=== PATIENT | male | born 1970 | race Caucasian/White ===

== ENCOUNTER 2018-08-18 04:18 | Emergency (ER) | payer SELFPAY ==
[2018-08-18] MEDS ORDERED: SODIUM CHLORIDE 0.9% 1000ML 1,000 ML ONE (04:32)
[2018-08-18] MEDS ORDERED: SODIUM CHLORIDE 0.9% 1000ML 1,000 ML IVS ONE ×2 (04:34→05:43)
--- NOTE | 2018-08-18 04:35 | ED.PDOC ---
History of Present Illness - General Chief Complaint: Abdominal Pain Stated Complaint: RUQ pain since [id number] last night Time Seen by Provider: 08/18/18 04:31 Source: patient, RN notes reviewed, Vital Signs reviewed Additional Information: 48 YEAR OLD PRESENTS WITH ABDOMINAL PAIN IT STARTED AROUND 9 PM PROGRESSIVE WITH NAUSEA VOMITING DISTENED ABDOMEN AND CONSTANT SEVERE PAIN HE HAD BOWEL MOVEMENT BUT NO BLOOD OR MUCOUS HE HAS BEEN ON KETOGENIC DIET FOR SEVERAL WEEKS THERE IS HISTOR OF COLON POLYPS IN THE FAMILY HE HAS NO RECENT CHANGE IN BOWEL HABITS NO ANOREXIA NO WEIGHT LOSS HE IS A HEALTHY MALE OTHERWISE PHYSICAL EXAM AWAKE ALERT IN OBVIOUS DISTRESS LUNGS CLEAR HEART SOUNDS NORMAL ABD DISTENDED THERE IS DIFFUSE TENDERNESS WITH SOME GUARDING BOWEL SOUNDS TYMPANIC RECTAL DEFERED CT ABD PELVIS SUGGESTIVE OF SMALL BOWEL OBSTRUCTION - History of Present Illness Timing/Duration: 4-6 hours Severity: moderate Worsening Factors: nothing Associated Symptoms: denies symptoms Allergies/Adverse Reactions: Allergies NO KNOWN ALLERGY Allergy (Verified 08/18/18 04:30) Home Medications: Ambulatory Orders NK 08/18/18 Review of Systems - Review of Systems Constitutional: States: no symptoms reported EENTM: States: no symptoms reported Respiratory: States: no symptoms reported Cardiology: States: no symptoms reported Gastrointestinal/Abdominal: States: see HPI Genitourinary: States: no symptoms reported Musculoskeletal: States: no symptoms reported Skin: States: no symptoms reported Neurological: States: no symptoms reported Endocrine: States: no symptoms reported Past Medical History (General) - Patient Medical History Hx Seizures: No Hx Stroke: No Hx Dementia: No Hx Asthma: No Hx of COPD: No Hx Cardiac Disorders: No Hx Congestive Heart Failure: No Hx Pacemaker: No Hx Hypertension: No Hx Thyroid Disease: No Hx Diabetes: No Hx Gastroesophageal Reflux: No Hx Renal Disease: No Hx Cancer: No Hx of HIV: No Hx Hepatitis C: No Hx MRSA: No Surgical History: no surgical history - Vaccination History Hx Tetanus, Diphtheria Vaccination: No Hx Influenza Vaccination: No - Social History Hx Tobacco Use: No Hx Alcohol Use: Yes - social Family Medical History - Family History Father Hx Family Diabetes: Yes Physical Exam - Physical Exam General Appearance: Alert, Comfortable Eye Exam: bilateral normal, bilateral abnormal EOM Ears, Nose, Throat: hearing grossly normal, normal ENT inspection, normal pharynx Neck: non-tender, full range of motion, supple Respiratory: chest non-tender, lungs clear, normal breath sounds, no respiratory distress Cardiovascular/Chest: normal peripheral pulses, regular rate, rhythm, no edema, no gallop Gastrointestinal/Abdominal: distended, guarding, rebound, tenderness Back Exam: normal inspection, no CVA tenderness 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 II-XII nml as tested, no motor/sensory deficits, alert, normal mood/affect, oriented x 3 Lymphatic: no adenopathy Progress - Results/Orders Results/Orders: Laboratory Tests 08/18/18 08/18/18 04:32 04:32 WBC 11.3 H RBC 4.76 Hgb 14.8 Hct 44.9 MCV 94.4 H MCH 31.1 H MCHC 33.0 RDW 13.6 Plt Count 220 MPV 8.1 Absolute Neuts (auto) 10.10 H Absolute Lymphs (auto) 0.70 L Absolute Monos (auto) 0.40 Absolute Eos (auto) 0.00 Absolute Basos (auto) 0.00 Neutrophils % 89.3 H Lymphocytes % 6.4 L Monocytes % 3.9 Eosinophils % 0.1 L Basophils % 0.3 Sodium 134 L Potassium 3.9 Chloride 99 L Carbon Dioxide 25 Anion Gap 13.9 BUN 23 H Creatinine 0.91 BUN/Creatinine Ratio 25.3 H Random Glucose 187 H Serum Osmolality 276.8 Calcium 9.3 Total Bilirubin 0.6 AST 24 ALT 21 Alkaline Phosphatase 69 Serum Total Protein 6.9 Albumin 4.4 Globulin 2.5 Albumin/Globulin Ratio 1.8 Lipase 38 Departure - Departure Clinical Impression: Small bowel obstruction Time of Disposition: 05:29 Disposition: Transfer to Hospital Departure Forms: ED Discharge - Pt. Copy, Patient Portal Self Enrollment Instructions: DI for Abdominal Pain-Adult Home Medications: Ambulatory Orders NK 08/18/18 Comments: DISCUSSED WITH DR GARCIA AT [facility] ED ACUTE SMALL BOWEL OBSTRUCTION NEEDS FURTHER SURGICAL EVALUATION Transfer to Outside Facility - Transfer Information Accepting Provider:: DR GARCIA Reason for Transfer: required specialist not available
[2018-08-18] MEDS ORDERED: HYDROmorphone HCL INJ 2 MG/ML VIAL IV ONE ×2 (05:08→05:54)
--- NOTE | 2018-08-18 05:12 | CT ---
CLINICAL HISTORY: severe abd pain COMPARISON: None. TECHNIQUE: CT ABDOMEN PELVIS WITH IV CONTRAST on 08/18/2018 4:31 AM CDT This exam was performed according to our departmental dose-optimization program, which includes automated exposure control, adjustment of the mA and/or kV according to patient size and/or use of iterative reconstruction technique. FINDINGS: Lower lungs are clear. Abdomen: The liver is normal in appearance. There is no biliary dilatation. There is a small hiatal hernia. Gallbladder is normal in appearance. The pancreas and spleen are normal in appearance. The adrenal glands and kidneys are unremarkable. Abdominal aorta is normal in course and caliber without aneurysm. There is no free air. There is no retroperitoneal adenopathy. Pelvis: There are multiple dilated small bowel loops throughout the abdomen. Distal small bowel is decompressed. Urinary bladder is unremarkable. There is no free fluid. Appendix is normal. Skeleton: There are no acute osseous findings. No suspicious bony lesions. IMPRESSION: Developing small bowel obstruction. Electronically signed by: Beau Culp MD 08/18/2018 5:08 AM CDT
[2018-08-18 05:39] VITALS: BP 139/93; TEMP 97.8; O2SAT 99
[2018-08-18] MEDS ORDERED: SODIUM CHLORIDE 0.9% 1000ML 1,000 ML IVS PRN (05:39)
--- NOTE | 2018-08-18 06:05 | RAD ---
EXAM: Single view chest. INDICATION: NG tube placement. COMPARISON: Chest x-ray: None. FINDINGS: Cardiac silhouette: Unremarkable. Paula: Unremarkable. Lobar consolidation: None. Pleural effusion: None. Pneumothorax: None. Other: The nasogastric tube is in satisfactory position. Bones: Unremarkable. Other: None. IMPRESSION: Satisfactory positioning of the nasogastric tube Electronically signed by: Polo Patterson MD 08/18/2018 6:01 AM CDT Workstation: [id number]
== END 2018-08-18 05:50 | disposition short-term general hospital (02) ==
LOC: ER 04:18
DX: K56.609 Unspecified intestinal obstruction, unspecified as to partial versus complete obstruction (principal)
CPT/HCPCS: 71045; 74177; 80053; 83690; 85025; J1170; J7030